=== PATIENT | female | born 1980 | race Caucasian/White ===

== ENCOUNTER 2016-11-16 15:14 | Emergency (ER) | payer BC ==
[2016-11-16 15:40] LABS: Hematocrit 38.9 % (37.0-47.0); Hemoglobin 13.6 gm/dL (12.5-16.0); Mean Cell Volume 89.2 fl (78-100); Mean Corpuscular Hemoglobin 31.2 pg (27-31); Mean Platelet Volume 9.4 fl (6.0-9.5); Neutrophil # 3.5 K/mm3 (1.3-6.0); Neutrophil % 54.2 % (42-75.0); Platelet Count 167 K/mm3 (150-450); Red Blood Count 4.36 M/mm3 (4.2-5.4); White Blood Count 6.5 K/mm3 (4.0-10.5)
--- NOTE | 2016-11-16 15:41 | ERNOTE ---
Chest Pain/Cardiac HPI Time Seen by Provider: 11/16/16 15:14 Source: patient Exam Limitations: no limitations Immunizations: IMMUNIZATION HX Immunizations Up to Date Yes History of Influenza Vaccine No Hx Pneumococcal Vaccination No Allergies/Adverse Reactions: Allergies No Known Allergies Allergy (Unverified 11/16/16 15:27) Home Medications: HOME MEDICATIONS Gabapentin 300 mg PO TID #90 capsule 11/16/16 [Last Taken Unknown] Sertraline HCl [Zoloft] 100 mg PO DAILY 11/16/16 [Last Taken Unknown] Narrative: Patient has had intermittent chest pain for about a year. She gets episodes about twice a week right side of her chest that seemed to be starting in the back and radiating to the front. The pain is sharp and severe, doesn't seem to be related to certain triggers, no injury, no rash initially.She had multiple evaluations for heart disease as well as for her gallbladder. The pain started this morning while she was sleeping Date (Duration): 11/16/16 Time (Timing): 05:00 Timing: intermittent Severity/Quality: severe, sharp Location: other Chest Pain Radiation: no radiation Activities at Onset: none Modifying Factors - Improves: Present: nothing Modifying Factors - Worsens: Present: nothing Nitro Today/Relief: no nitro taken today Associated Symptoms: Present: denies symptoms Prior Chest Pain/Cardiac Workup: Reports: prior chest pain. Denies: no prior cardiac workup, heart attack Review of Systems - Review of Systems Constitutional: Absent: recent illness, fever ENT: Absent: sore throat Respiratory: Absent: shortness of breath Cardiology: Absent: chest pain Gastrointestinal/Abdominal: Absent: nausea, abdominal pain Genitourinary: Present: no symptoms reported Musculoskeletal: Absent: back pain Skin: Absent: rash Neurological: Absent: headache, weakness, numbness - Patient's Past Medical History Patient History - Medical: Depression, Other Patient History - Cardiac/Respiratory: No pertinent hx Patient History - Cancer: No Hx of Cancer Patient History - Surgical Procedures: No surgical history Patient History - Other: None - Social History Living Situations: home Psych History: Hx of Anxiety, Hx of Depression Smoking Status: Current every day smoker Have you smoked in the past 12 months: No Do you dip or chew tobacco: No - Immunizations Immunizations Up to Date: Yes Hx Pneumococcal Vaccination: No History of Influenza Vaccine: No Physical Exam - Physical Exam General Appearance: Present: wd/wn, alert, moderate distress, anxious Neck: Present: normal inspection Respiratory: Present: no respiratory distress, normal breath sounds, lungs clear , chest tenderness - posterior right paravertebral in thoracic area Cardiovascular/Chest: Present: regular rate, rhythm, no murmur Gastrointestinal/Abdominal: Present: nontender, nondistended, soft Back Exam: Present: normal inspection, no vertebral tenderness Extremity Exam: Present: no edema Neurological Exam: Present: alert, oriented, normal mood/affect Skin Exam: Present: normal color, warm/dry ED Progress - Results and Orders Patient's Lab Results:: I have reviewed the patient's lab results. - Vital Signs Patient's Vital Signs:: I have reviewed the patient's vital signs. Vital Signs: Vital Signs 11/16/16 15:22 Temperature 37.7 C H Pulse Rate 86 Respiratory 15 Rate Blood Pressure 139/79 O2 Sat by Pulse 100 Oximetry - EKG EKG: NSR, no ST T wave changes, other - no acute EKG read: Interp. by me - X-Ray X-Ray #1 X-Ray: thoracic - DDD, spuring, no acute changes Interpretation: Interp. by me - Progress/Reassessment Progress Note-Subjective: 11/16/16 16:31 explained results to patient and family, still has severe pain Departure - Departure Clinical Impression: Thoracic neuralgia Disposition: Home self-care Condition: Good Instructions: Postherpetic Neuralgia Additional Instructions: take the gabapentin twice a day tomorrow, than go to three times a day the day after, call your doctor for follow up tomorrow when you get home Prescriptions: Gabapentin 300 mg PO TID #90 capsule
--- OUTSIDE RECORDS SUMMARY | 2016-11-16 15:58 | XMS REPORT | Continuity of Care Document ---
:1980 Author Organization [facility] [place] [address] Care Team Providers Name Role Phone Unavailable Primary Care Provider Unavailable Source Comments This disclosure is being made pursuant to the [employer] program and maynot contain all information available regarding this patient.[facility] Active Allergies and Adverse Reactions Not on File Current Medications Be aware that medications may not be up to date as of this document. Alwaysverify current medications with the patient. Not on file Active Problems Not on file Social History Tobacco Use Types Packs/Day Years Used Date Never Assessed Plan of Care Health Maintenance Due Date Last Done Comments Tetanus/Pertussis (1 - Tdap) 1997 Influenza Immunization (#1) 2016 Pap Smear 03/21/2019 03/21/2016 Results from Last 3 Months Not on file
[2016-11-16 16:01] LABS: ALT 18 U/L (19-67); AST 15 U/L (0-48); Albumin * 3.5 gm/dl (3.4-5.0); Alkaline Phosphatase * 80 U/L (50-170); Anion Gap 9.8 mmol/L (6.8-13.8); BUN/Creatinine Ratio 11.6 (9.0-21.6); Bilirubin, Total 0.2 mg/dL (0.0-1.1); Blood Urea Nitrogen 8 mg/dL (3-23); CRP 0.7 mg/dL (0.0-0.9); Ca. Corrected For Albumin 9.1 mg/dL (8.4-10.2); Chloride 102 mmol/L (97-106); Glucose * 121 mg/dL (70-110); Potassium 3.8 mmol/L (3.4-4.6); Sodium 140 mmol/L (132-142); Total Protein 7.1 gm/dL (6.2-8.2); Troponin I Less than 0.017 ng/ml (0.00-0.10)
[2016-11-16 16:02] LABS: Cocaine Ur Negative (NEGATIVE); Urine Barbiturate Negative (NEGATIVE); Urine Benzodiazepines Negative (NEGATIVE); Urine PCP Negative (NEGATIVE); Urine THC Negative (NEGATIVE)
[2016-11-16 16:06] LABS: Urine Bilirubin Negative (NEGATIVE); Urine Color Yellow; Urine Ketone Negative (NEGATIVE); Urine Protein Negative (NEGATIVE); Urine Urobilinogen Normal (NORMAL)
[2016-11-16 16:07] LABS: Urine Nitrite Negative (NEGATIVE)
[2016-11-16 16:09] LABS: Urine Blood 25 /ul (NEGATIVE)
[2016-11-16 16:11] LABS: Urine RBC 0-5 /hpf (0-5)
[2016-11-16 16:12] LABS: Urine Bacteria 1+
[2016-11-16 16:13] LABS: Urine Appearance Slightly Cloudy
[2016-11-16 16:28] VITALS: BP 115/66
[2016-11-16] MEDS ORDERED: KETOROLAC TROMETHAMINE 60 MG/2 ML VIAL IM ONE ×2 (16:30→16:31)
[2016-11-16] MEDS ORDERED: GABAPENTIN 100 MG CAPSULE PO ONE (16:30)
== END 2016-11-16 16:41 | disposition home or self-care (01) ==
LOC: ER 15:14
DX: B02.29 Other postherpetic nervous system involvement (principal); Z72.0 Tobacco use